=== PATIENT | female | born 1940 | race Caucasian/White ===

== ENCOUNTER → 2016-05-27 | Outpatient (CLI) | payer OTHER ==
[~2016-05-27] MED LIST: ACET-1256 PO; ATV/1 PO; FENTANYL EXT; HYDR-5688 PO; LORA-741 PO; ONDA-63 PO; OPTIRAY 320 IV PRN; PANT40TA PO; TRAM-10 PO; VITAMIN C PO
--- NOTE | 2016-05-27 16:26 | DIAGNOSTIC IMAGING REPORT ---
ABDOMEN AND PELVIS CT WITH IV AND ORAL CONTRAST CT DOSE: HISTORY: Ovarian carcinoma OVARIAN CA. TECHNIQUE: Multiaxial CT images of the abdomen and pelvis were performed following the use of intravenous and oral contrast. COMPARISON STUDY: 02/17/2016 FINDINGS: Lung bases show minimal micronodularity 2. Small to quantify. Evaluation of the abdomen demonstrates progressive hepatic metastatic disease. There is virtual complete involvement of the left hepatic lobe. Several foci of new or interval metastatic change involving the right hepatic lobe are present. Largest measures 2.2 cm superior aspect right hepatic lobe with several associated regional metastatic deposits. Interval 1.5 cm metastatic focus peripheral right hepatic lobe. Additional lesion medial aspect inferior margin right hepatic lobe. Interval development of a trace amount of perihepatic fluid. Pancreas is uniform. Kidneys are negative for hydronephrosis. Findings of progressive omental carcinomatosis. This is seen anterior to the greater curvature of the stomach as well as adjacent to the transverse colon. Progressive mental carcinomatosis anterior to the mid and lower abdominal regions present. There is moderate melody pathology currently. There is small amount of pelvic ascites also represent an interval change. Bladder is midline. Postoperative changes within the low pelvis are again noted as well as a partial colonic resection left. 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 Gallbladder is negative for distention. There is moderate mesenteric melody pathology. Periportal nodes measure up to 2 cm. IMPRESSION: 1. Progressive abdominal and pelvic metastatic change. 2. Rather markedly progressive omental carcinomatosis. 3. Progressive hepatic metastatic change. 4. Mild abdominal and pelvic ascites. Progressive abdominal and pelvic adenopathy 5. Bowel pattern remains nonobstructive. Electronically signed by: Raman Merrill M.D. 05/27/2016 4:24 PM Dictated Date/Time: 05/27/2016 4:17 PM
--- NOTE | 2016-05-27 16:28 | DIAGNOSTIC IMAGING REPORT ---
CT OF THE CHEST WITH IV CONTRAST CLINICAL HISTORY: Ovarian cancer. COMPARISON STUDY: PET/CT November 26, [address] February 17, 2016. TECHNIQUE: Following IV administration of 115 mL of Optiray-320, helical axial images of the chest were obtained. Images were viewed in the axial, sagittal and coronal planes. IV contrast was administered without complication. CT DOSE: 495.09 mGy.cm FINDINGS: No enlarged axillary, mediastinal or hilar lymph nodes are present. There are a few subcentimeter thyroid nodules. The size of the heart is normal. There is no pericardial effusion. The central airways are patent. There is been interval development of multiple subcentimeter pulmonary nodules since CT of February 17, 2016, the largest of which is a 5 mm left upper lobe nodule shown on image 130 of 276. At least 10 small nodules are present. No consolidation is identified to suggest pneumonia. No suspicious osseous lesions are present. The abdomen and pelvis will be reported separately. Multiple hepatic metastases have increased in size since prior exam of February 17, 2016. An index right hepatic dome lesion measures 2.3 cm. It previously measured 0.6 cm. IMPRESSION: 1. Interval development of multiple subcentimeter pulmonary nodules since CT of February 17, 2016 consistent with pulmonary metastases. 2. Progression of hepatic metastases, better depicted on the CT of the abdomen and pelvis. Electronically signed by: Mark Lemus M.D. 05/27/2016 4:27 PM Dictated Date/Time: 05/27/2016 4:20 PM
== END | disposition home or self-care (01) ==
LOC: C.CTS 13:55
PROVIDERS: ATTEND Nurse Practitioner
DX: C56.9 Malignant neoplasm of unspecified ovary (principal); C78.7 Secondary malignant neoplasm of liver and intrahepatic bile duct; R59.9 Enlarged lymph nodes, unspecified; R91.8 Other nonspecific abnormal finding of lung field

== ENCOUNTER → 2016-06-09 | Outpatient (CLI) | payer OTHER ==
[~2016-06-09] MED LIST changes: -OPTIRAY 320 IV PRN
--- NOTE | 2016-06-09 14:11 | ECHOCARDIOGRAM REPORT ---
*NOTICE TO RECEIVING DEMOCRAT AGENCY This information is strictly Confidential and protected under [place] law. [place] law prohibits you from making any further disclosure of this information unless further disclosure is expressly permitted by the written consent of the person to whom it pertains or is authorized by law. A general authorization for the release of medical or other information is not sufficient for this purpose. Hospital accepts no responsibility if the information is made available to any other person, INCLUDING THE PATIENT. Interpretation Summary * Name: LUCIEN MYRICK Study Date: 06/09/2016 12:57 PM BP: 130/55 mmHg * Patient Location: [facility] HR: 77 * : 1940 (M/d/yyyy) Gender: Female Height: 64 in * Age: 76 yrs Ethnicity: [place] Weight: 135 lb * Ordering Physician: Santos Velasquez * Referring Physician: Santos Velasquez D.O. * Performed By: [facility] * * Reason For Study: NEOPLASM * BSA: 1.7 m2 * -- Conclusions -- * Left ventricular systolic function is normal. * Grade I diastolic dysfunction, (abnormal relaxation pattern). * There is mild mitral regurgitation. Procedure Details * Left Ventricle The left ventricle is normal in size. There is borderline concentric left ventricular hypertrophy. Ejection Fraction = 65-70%. Left ventricular systolic function is normal. Grade I diastolic dysfunction, (abnormal relaxation pattern). * Right Ventricle The right ventricle is normal in size and function. * Atria The left atrial size is normal. Right atrial size is normal. * Mitral Valve The mitral valve is grossly normal. There is mild mitral regurgitation. * Tricuspid Valve The tricuspid valve is not well visualized, but is grossly normal. Significant tricuspid regurgitation is absent. * Aortic Valve The aortic valve is normal in structure and function. No hemodynamically significant valvular aortic stenosis. There is no significant aortic regurgitation. * Great Vessels The aortic root is normal size. * Pericardium/Pleural Trace pericardial effusion. * * MMode 2D Measurements and Calculations * IVSd 1.3 cm * IVSs 1.4 cm * * LVIDd 3.8 cm * LVIDs 2.4 cm * LVPWd 1.1 cm * LVPWs 1.6 cm * * IVS/LVPW 1.2 * FS 35.6 % * EDV(Teich) 60.1 ml * ESV(Teich) 20.5 ml * EF(Teich) 65.9 % * * EDV(cubed) 52.8 ml * ESV(cubed) 14.1 ml * EF(cubed) 73.3 % * % IVS thick 6.9 % * % LVPW thick 50.4 % * * LV mass(C)d 142.9 grams * LV mass(C)dI 86.3 grams/m\S\2 * LV mass(C)s 116.5 grams * LV mass(C)sI 70.4 grams/m\S\2 * * CO(Teich) 3.0 l/min * CI(Teich) 1.8 l/min/m\S\2 * SV(Teich) 39.6 ml * SI(Teich) 23.9 ml/m\S\2 * CO(cubed) 3.0 l/min * CI(cubed) 1.8 l/min/m\S\2 * SV(cubed) 38.7 ml * SI(cubed) 23.4 ml/m\S\2 * * Ao root diam 2.9 cm * Ao root area 6.4 cm\S\2 * ACS 1.7 cm * LA dimension 3.1 cm * * asc Aorta Diam 3.0 cm * * LA/Ao 1.1 * * LVAd ap4 24.7 cm\S\2 * LVLd ap4 7.6 cm * EDV(MOD-sp4) 66.0 ml * LVAs ap4 12.8 cm\S\2 * LVLs ap4 6.2 cm * ESV(MOD-sp4) 22.0 ml * EF(MOD-sp4) 66.7 % * * LVAd ap2 24.0 cm\S\2 * LVLd ap2 7.4 cm * EDV(MOD-sp2) 65.0 ml * LVAs ap2 12.4 cm\S\2 * LVLs ap2 6.3 cm * ESV(MOD-sp2) 21.0 ml * EF(MOD-sp2) 67.7 % * * CO(MOD-sp4) 3.4 l/min * CI(MOD-sp4) 2.0 l/min/m\S\2 * SV(MOD-sp4) 44.0 ml * SI(MOD-sp4) 26.6 ml/m\S\2 * * CO(MOD-sp2) 3.4 l/min * CI(MOD-sp2) 2.0 l/min/m\S\2 * SV(MOD-sp2) 44.0 ml * SI(MOD-sp2) 26.6 ml/m\S\2 * * * * * * Doppler Measurements and Calculations * MV E max ar 53.2 cm/sec * MV A max ar 66.4 cm/sec * * MV E/A 0.80 * * MV P1/2t max ar 63.1 cm/sec * MV P1/2t 99.1 msec * MVA(P1/2t) 2.2 cm\S\2 * MV dec slope 186.5 cm/sec\S\2 * MV dec time 0.37 sec * * Ao V2 max 121.0 cm/sec * Ao max PG 5.9 mmHg * Ao max PG (full) 0.65 mmHg * * LV V1 max PG 5.2 mmHg * * LV V1 max 114.1 cm/sec * * PA V2 max 83.5 cm/sec * PA max PG 2.8 mmHg * * *
== END | disposition home or self-care (01) ==
LOC: C.CPL 12:36
PROVIDERS: ATTEND Internal Medicine Hematology & Oncology
DX: C56.9 Malignant neoplasm of unspecified ovary (principal)

== ENCOUNTER → 2016-08-20 | Outpatient (CLI) | payer OTHER ==
[~2016-08-20] MED LIST changes: -HYDR-5688 PO; +OPTIRAY 320 IV PRN
--- NOTE | 2016-08-20 13:02 | DIAGNOSTIC IMAGING REPORT ---
CT ABD/PELVIS IV AND ORAL CONT CLINICAL HISTORY: Ovarian carcinoma. Right lower quadrant abdominal pain COMPARISON STUDY: 05/27/2016 TECHNIQUE: Following the IV administration of 93 mL of Optiray-320, CT scan of the abdomen and pelvis was performed from the lung bases to the proximal femurs. Images are reviewed in the axial, sagittal, and coronal planes. IV contrast was administered without complication. CT DOSE: FINDINGS: Lower chest: There are mild lingular atelectatic changes. Liver: There are multiple space-occupying hepatic masses. The largest is a confluent mass within the left lobe measuring 12 cm. In the right lobe mass measures 24 mm. This previously measured 21 mm. Index left lobe mass measures 33 mm. This previously measured 26 mm. Gallbladder: Unremarkable. Spleen: Normal in size and attenuation. Pancreas: Unremarkable. Adrenal glands: Unremarkable. Kidneys: There is an 11 mm lower pole right renal cyst. There is no hydronephrosis. Bowel: There is nonspecific gastric wall thickening. There are no transition zones to indicate bowel obstruction. There is no acute diverticulitis. The appendix appears normal. Peritoneum: There is a small amount of pelvic ascites. There is trace fluid in left paracolic gutter. There is a small amount of perinephric hepatic and perisplenic fluid. There is omental and peritoneal carcinomatosis. The omental implants appears minimally smaller than compared the prior study. Vasculature: The abdominal aorta is normal in course and caliber. Adenopathy: None. Pelvic viscera: The bladder, and pelvic viscera are unremarkable. Skeletal structures: No destructive osseous lesions are seen. IMPRESSION: 1. Progressive intrahepatic metastatic disease 2. Persistent peritoneal and omental carcinomatosis. The omental implants appear slightly diminished in volume when compared the prior study 3. Low volume ascites Electronically signed by: Jesse Kraft M.D. 08/20/2016 1:01 PM Dictated Date/Time: 08/20/2016 12:52 PM
--- NOTE | 2016-08-20 13:03 | DIAGNOSTIC IMAGING REPORT ---
CHEST CT WITH CONTRAST CT DOSE: 541.69 mGy.cm HISTORY: Ovarian cancer. TECHNIQUE: Multiaxial CT images of the chest were performed following the intravenous administration of contrast. COMPARISON: Chest CT 05/27/2016. FINDINGS: The central airways are patent. No pleural effusions. No pneumothorax. Interval increase in size and number of the multiple bilateral pulmonary nodules consistent with progressive metastatic disease. There are greater than 30 nodules total. Dominant nodule seen within the left upper lobe anteriorly on image 25 and measures 6 mm, previously measuring 4 mm. No suspicious lytic or blastic osseous lesions. Left Port-A-Cath terminates in the distal SVC. No mediastinal or hilar lymphadenopathy. The heart is normal in size. Normal caliber thoracic aorta. The central pulmonary arteries are patent. Hepatic metastatic disease is better appreciated on the same day abdomen and pelvis CT. Small amount of upper abdominal ascites. Stable anterior diaphragmatic subcentimeter lymph node. IMPRESSION: Increase in size and number of the multiple subcentimeter pulmonary nodules consistent with progressive metastatic disease. Electronically signed by: Rommel De La Rosa M.D. 08/20/2016 1:01 PM Dictated Date/Time: 08/20/2016 12:54 PM
== END | disposition home or self-care (01) ==
LOC: C.CTS 12:29
PROVIDERS: ATTEND Internal Medicine Hematology & Oncology
DX: C56.9 Malignant neoplasm of unspecified ovary (principal); R10.31 Right lower quadrant pain; C78.7 Secondary malignant neoplasm of liver and intrahepatic bile duct; R91.8 Other nonspecific abnormal finding of lung field

== ENCOUNTER → 2016-12-17 | Day surgery (SDC) | payer OTHER ==
[2016-12-16 13:06] VITALS: BMI 22.0
[~2016-12-17] VITALS: Ht 162.6 cm; Wt 58.6 kg
[~2016-12-17] MED LIST changes: +CEFAZOLIN SOD 2000MG/10 ML IV PUSH IV ONE; +CEFAZOLIN SOD 2000MG/10 ML IV PUSH IV SCH; +FENTANYL CITRATE INJ 50 MCG/1 ML 2 ML VIAL ONE; +LIDOCAINE HCL 2% 2 ML VIAL (20MG/ML) ONE; -LORA-741 PO; +MIDAZOLAM HCL 1 MG/ML 2ML VIAL ONE; -ONDA-63 PO; +ONDANSETRON INJ 2 MG/ML 2 ML VIAL ONE; -OPTIRAY 320 IV PRN; +PROPOFOL IV EMULSION 10 MG/ML 20 ML VIAL IV ONE; +SODIUM CHLORIDE 0.9% 500ML 500 ML IV ONE; -VITAMIN C PO
[2016-12-17 12:53] VITALS: Ht 162.6 cm; Wt 58.6 kg
--- NOTE | 2016-12-17 13:27 | Endo History and Physical ---
History & Physical Date of Service: Dec 17, 2016. Chief Complaint: OVARIAN CANCER Referring Physician: DR DELEON History of Present Illness 76 yo CF who presents for EGD with PEG Tube placement secondary to Ovarian cancer. Past Surgical History Hx Cardiac Surgery: No Hx Internal Defibrillator: No Hx Pacemaker: No Hx Abdominal Surgery: Yes (TUBAL LIGATION, COLON RESECTION/UTERINE FIBROID REMOVAL) Hx of Implantable Prosthesis: No Hx Post-Op Nausea and Vomiting: No Hx Cancer Surgery: No Hx Thoracic Surgery: No Hx Orthopedic: Yes (ORIF RT WRIST) Hx Urinary Tract Surgery: No Family History Colon CA Social History Smoking Status: Never Smoker Hx Substance Use: No Hx Alcohol Use: No Allergies Coded Allergies: Codeine (Verified Adverse Reaction, Unknown, "MAKES ME FEEL GOOFY", ) Current Medications Reported Home Medications Medications Dose Route/Sig Max Daily Dose Days Date Category Tylenol (Acetaminophen) 500 Mg Tab 1 Tab PO Q8 3 12/17/16 Reported Protonix (Pantoprazole Sodium) 40 Mg Tab 40 Mg PO QAM 12/16/16 Reported [Fentanyl] 12MG 1 Appln EXT Q3DAYS 12/16/16 Reported Ultram (Tramadol HCl) 50 Mg Tab 50 Mg PO Q4H PRN 12/16/16 Reported Ativan (Lorazepam) 1 Mg Tab 1 Mg PO HS 12/16/16 Reported Vital Signs Weight (Kilograms): 58.64 Height (Feet): 5 Height (Inches): 4 Date Time Temp Pulse Resp B/P (MAP) Pulse Ox O2 Delivery O2 Flow Rate FiO2 12/17/16 12:52 36.8 109 20 116/50 (72) 95 Room Air Physical Exam General Appearance: WD/WN, no apparent distress Respiratory/Chest: Auscultation: breath sounds normal Cardiovascular: Heart Auscultation: RRR Abdomen: Bowel Sounds: normal Inspection & Palpation: soft, non-distended, no tenderness, guarding & rebound Assessment and Plan Assessment: 76 yo CF who presents for EGD with PEG Tube placement secondary to Ovarian cancer. Plan: Proceed with PEG Tube placement.
--- NOTE | 2016-12-17 14:17 | GI REPORT ---
Procedure Date: 12/17/2016 1:35 PM THIS REPORT HAS BEEN AMENDED Addendum Number: 1 Addendum Date: 12/28/2016 10:25:17 PM Biopsies were obtained of a gastric mass, however, family asked for the biopsies to be discarded, as she is on hospice, and has a firm diagnosis. Procedure: Upper GI endoscopy Indications: Ovarian cancer with metastatic disease Medicines: Monitored Anesthesia Care Complications: No immediate complications. Estimated Blood Loss: Estimated blood loss: none. Procedure: Pre-Anesthesia Assessment: - Prior to the procedure, a History and Physical was performed, and patient medications and allergies were reviewed. The patient's tolerance of previous anesthesia was also reviewed. The risks and benefits of the procedure and the sedation options and risks were discussed with the patient. All questions were answered, and informed consent was obtained. Prior Anticoagulants: The patient has taken no previous anticoagulant or antiplatelet agents. ASA Grade Assessment: III - A patient with severe systemic disease. After reviewing the risks and benefits, the patient was deemed in satisfactory condition to undergo the procedure. After obtaining informed consent, the endoscope was passed under direct vision. Throughout the procedure, the patient's blood pressure, pulse, and oxygen saturations were monitored continuously. The On-site loaner was introduced through the mouth, and advanced to the second part of duodenum. The upper GI endoscopy was accomplished without difficulty. The patient tolerated the procedure well. Findings: The esophagus was normal. A medium-sized, infiltrative, non-circumferential mass with no bleeding and no stigmata of recent bleeding was found on the greater curvature of the stomach. Biopsies were taken with a cold forceps for histology. The patient was placed in the supine position for PEG placement. The stomach was insufflated to appose gastric and abdominal matta. A site was located in the body of the stomach with excellent transillumination for placement. The abdominal wall was marked and prepped in a sterile manner. The area was anesthetized with 5 mL of 1% lidocaine. The trocar needle was introduced through the abdominal wall and into the stomach under direct endoscopic view. A snare was introduced through the endoscope and opened in the gastric lumen. The guide wire was passed through the trocar and into the open snare. The snare was closed around the guide wire. The endoscope and snare were removed, pulling the wire out through the mouth. A skin incision was made at the site of needle insertion. The externally removable 20 Fr Jay-Cook gastrostomy tube was lubricated. The G-tube was tied to the guide wire and pulled through the mouth and into the stomach. The trocar needle was removed, and the gastrostomy tube was pulled out from the stomach through the skin. The external bumper was attached to the gastrostomy tube, and the tube was cut to remove the guide wire. The final position of the gastrostomy tube was confirmed by relook endoscopy, and skin marking noted to be 2 cm at the external bumper. The final tension and compression of the abdominal wall by the PEG tube and external bumper were checked and revealed that the bumper was moderately tight and mildly deforming the skin. The feeding tube was capped, and the tube site cleaned and dressed. The examined duodenum was normal. Impression: - Normal esophagus. 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 Biopsied. - Normal examined duodenum. - An externally removable PEG placement was successfully completed. Recommendation: - Resume previous diet. - Continue present medications. - Please follow the post-PEG recommendations including: clean site with soap and water daily and dry thoroughly and start using PEG today. - Await pathology results. - Return to primary care physician as previously scheduled. Hugh Lopez Case, DO 12/17/2016 2:16:35 PM This report has been signed electronically. Note Initiated On: 12/17/2016 1:35 PM I attest to the content of the Intraoperative Record and orders documented therein, exceptions below Hugh Lopez Case, DO 12/28/2016 10:25:56 PM This report has been signed electronically.
--- NOTE | 2016-12-17 14:18 | Discharge Instructions ---
Endoscopy Patient Instructions Date / Procedure(s) Performed Dec 17, 2016. EGD, Other Allergy Information Coded Allergies: Codeine (Verified Adverse Reaction, Unknown, "MAKES ME FEEL GOOFY", ) Discharge Date / Findings Dec 17, 2016. Successful PEG tube placement Gastric mass s/p biopsies Medication Instructions OK to resume all medications today as prescribed Reported Home Medications Medications Dose Route/Sig Max Daily Dose Days Date Category Tylenol (Acetaminophen) 500 Mg Tab 1 Tab PO Q8 3 12/17/16 Reported Protonix (Pantoprazole Sodium) 40 Mg Tab 40 Mg PO QAM 12/16/16 Reported [Fentanyl] 12MG 1 Appln EXT Q3DAYS 12/16/16 Reported Ultram (Tramadol HCl) 50 Mg Tab 50 Mg PO Q4H PRN 12/16/16 Reported Ativan (Lorazepam) 1 Mg Tab 1 Mg PO HS 12/16/16 Reported Provider Instructions Activity Restrictions - No exercising or heavy lifting for 24 hours. - Do not drink alcohol the day of the procedure. - Do not drive a car or operate machinery until the day after the procedure. - Do not make any important decisions or sign important papers in 24 hours after the procedure. Following Day: - Return to full activity which may include returning to work/school. Diet Start your diet with liquids and light foods (jello, soup, juice, toast). Then eat your usual diet if not nauseated. Treatment For Common After Affects For mild abdominal pain, bloating, or excessive gas: - Rest - Eat lightly - Lie on right side Follow-Up Information Follow-up with DR DELEON as scheduled Anesthesia Information What You Should Know You have had a procedure that required some medicine to reduce anxiety and discomfort. This treatment is called moderate sedation. After receiving the treatment, you may be sleepy, but you will be able to breathe on your own. The effects of the treatment may last for several hours. Follow these instructions along with Activity/Diet recommendations noted above: * Do NOT do anything where dizziness or clumsiness would be dangerous. * Rest quietly at home today, then you can be up and about tomorrow. * Have a responsible person stay with you the rest of today. * You may have had an I.V. today. If so, you may take the dressing off later today. Recommendations Call your doctor if: * Trouble breathing * Continuous vomiting for more than 24 hours * Temperature above 101 degrees * Severe abdominal pain or bloating * Pain not relieved by pain medicine ordered * There is increased drainage or redness from any incision * A large amount of rectal bleeding greater than 2-3 tablespoons. (If you had a polyp/s removed or have hemorrhoids, a small amount of blood - from the rectum is to be expected.) * You have any unanswered questions or concerns. IN THE EVENT OF A SERIOUS EMERGENCY, GO TO THE NEAREST EMERGENCY ROOM Your discharge instructions were prepared by provider Hugh Angel. Patient Instructions Signature Page Berkley Leos Patient (or Guardian) Signature/Date: I have read and understand the instructions given to me by my caregivers. Caregiver/RN/Doctor Signature/Date: The above-named patient and/or guardian has received patient instructions on this date. + Original Patient Signature Page (only) stays with chart. Please make copy for patient.
[2016-12-17 14:47] VITALS: BP 126/64; PULSE 102; O2SAT 93
--- NOTE | 2016-12-17 15:20 | Anesthesiology Progress Note ---
Anesthesia Post Op Note Date & Time Dec 17, 2016 at 15:20 Vital Signs Pain Intensity: 0 Vital Signs Past 12 Hours Date Time Temp Pulse Resp B/P (MAP) Pulse Ox O2 Delivery O2 Flow Rate FiO2 12/17/16 14:47 102 18 126/64 (84) 93 Room Air 12/17/16 14:31 112 18 112/70 (84) 93 Room Air 12/17/16 14:19 106 16 116/58 (77) 97 Room Air 12/17/16 12:52 36.8 109 20 116/50 (72) 95 Room Air Notes Mental Status: alert / awake / arousable, participated in evaluation Pt Amnestic to Procedure: Yes Nausea / Vomiting: adequately controlled Pain: adequately controlled Airway Patency, RR, SpO2: stable & adequate BP & HR: stable & adequate Hydration State: stable & adequate Anesthetic Complications: no major complications apparent
== END | disposition home or self-care (01) ==
LOC: C.GI 12:22
PROVIDERS: ATTEND Internal Medicine
DX: C56.9 Malignant neoplasm of unspecified ovary (principal); C78.7 Secondary malignant neoplasm of liver and intrahepatic bile duct; Z80.0 Family history of malignant neoplasm of digestive organs; K21.9 Gastro-esophageal reflux disease without esophagitis